=== PATIENT | male | born 1975 ===

== ENCOUNTER 2021-05-07 15:44 | Observation (INO) | payer OTHER, SELFPAY ==
[2021-05-07] VITALS (12 sets, daily range): BP systolic 103–115; BP diastolic 60–70; PULSE 54–82; RESP 12–18; TEMP 36.6–37.2; O2SAT 94–100; BMI 22.0
--- NOTE | 2021-05-07 | PATH_ITS ---
[facility] Accession Number: [id number] . 01 Material submitted: . appendix - APPENDIX . 01 Clinical history: . PAIN IN LOWER ABDOMEN ON RIGHT SIDE . 02 Diagnosis: Appendix, Appendectomy: Acute appendicitis and serositis. Fecalith present ([address] [facility] 05/10/2021 1427 Local . 02 Electronically signed: . Camila Kimball MD, Pathologist NPI- [id number] . 01 Gross description: . The specimen is received in formalin, labeled appendix and consists of a fragmented appendix measuring 7.0 cm in length by 0.8 cm in diameter approximately. The attached mesoappendix is asencio-yellow and hemorrhagic with purulent exudate. The serosa is pink-red and ragged with purulent exudate. Sectioning reveals a red-brown mucosa and a lumen measuring 0.6 cm in diameter. A 1.0 x 0.8 x 0.6 cm asencio stone is identified within the specimen container. Electronic Resources Librarian sections are submitted, to include the en face margin (blue), central cross-sections and bisected tips, in cassettes A1-A2. (EA:[id number]) /MRV 05/09/2021 1136 Local . 02 Pathologist provided ICD-10: K35.80 . 02 CPT . 696244 Performed at: 01 [facility] [address], [place], [place] [id number] MD Mitesh Truong MD Phone: [phone] Performed at: 02 [facility] [address] [place], [place] [id number] MD Carol Kamara MD Phone: [phone]
--- NOTE | 2021-05-07 16:04 | DI.CT.S_ITS ---
PROCEDURE: CT ABDOMEN PELVIS W CON INDICATIONS: RLQ pain/tenderness TECHNIQUE: After the administration of intravenous contrast, axial sections acquired from the lung bases to the pubic symphysis. Coronal and sagittal reformats were performed. For radiation dose reduction, the following was used: automated exposure control, adjustment of mA and/or kV according to patient size. COMPARISON: None. FINDINGS: Image quality: Excellent. Lung bases: Unremarkable. Heart: No significant findings. ABDOMEN: Liver: Unremarkable. Gallbladder: Demonstrates a phyrgian cap and is otherwise unremarkable Biliary ducts: Unremarkable. Pancreas: Unremarkable. Spleen: Unremarkable. Adrenal Glands: Unremarkable. Kidneys and Ureters: Unremarkable. Stomach and Bowel: There is mild thickening of the proximal ascending colon Stomach, small bowel loops, and colon are otherwise unremarkable. Appendix is distended and demonstrates internal gas and fluid as well as an appendicoliths measuring 12 mm. Severe surrounding fat stranding as well as a small amount of fluid within the right pericolic gutter and pelvis. Peritoneum: . No free air. Ventral Wall: No hernias. Abdominal Nodes: No retroperitoneal or mesenteric adenopathy by size criteria. Vessels: Aorta and inferior vena cava are normal in size. PELVIS: Pelvic Organs: Unremarkable. Bladder: Unremarkable. Pelvic Nodes: No enlarged lymph nodes. Miscellaneous: No hernias are seen. Bones: Unremarkable. IMPRESSION: 1. Ruptured appendicitis. Surrounding fluid and secondary thickening of the colon. 2. Findings discussed with Dr. Chris on 05/07/2021 at 16:38 hours. Dictated by: Pete Jackson M.D. on 05/07/2021 at 16:37 Approved by: Pete Jackson M.D. on 05/07/2021 at 16:39
[2021-05-07 16:09] LABS: Add Manual Diff / Slide Review NO; Basophils Absolute Auto 0 /uL (0-100); Basophils Percent Auto 0.4 % (0-2); Eosinophils Absolute Auto 0 /uL (0-450); Eosinophils Percent Auto 0.1 % (2-4); Hematocrit 44.2 % (41-53); Hemoglobin 15.2 g/dL (13.5-17.5); Lymphocytes Absolute Auto 1200 /uL (1100-4500); Lymphocytes Percent Auto 9.8 % (25-40); Mean Corpuscular HGB Conc 34.4 % (30-36); Mean Corpuscular Hemoglobin 32.3 PG (26-34); Mean Corpuscular Volume 93.8 fL (80-100); Monocytes Absolute Auto 1100 /uL (0-900); Monocytes Percent Auto 9.5 % (3-14); Neutrophils Absolute Auto 9600 /uL (1500-7000); Neutrophils Percent Auto 80.2 % (50-75); Platelet Count 228 X10^3/uL (150-400); Red Blood Cell Count 4.72 X10^6/uL (4.5-5.9); Red Cell Distribution Width 12.9 % (11.6-14.8)
[2021-05-07 16:14] LABS: Alanine Aminotransferase 14 IU/L (<50); Albumin 4.5 g/dL (3.5-5.0); Albumin Globulin Ratio 1.3 (1.0-2.8); Alkaline Phosphatase 62 U/L (38-126); Aspartate Aminotransferase 19 IU/L (17-59); BUN Creatinine Ratio 16.7 (6-22); Blood Urea Nitrogen 9 mg/dL (9-20); Calcium 9.3 mg/dL (8.4-10.2); Carbon Dioxide 31 mmol/L (22-32); Chloride 100 mmol/L (98-107); Estimated Glomerular Filt Rate > 60.0 mL/min (>60); Globulin 3.5 g/dL (1.7-4.1); Glucose 118 mg/dL (70-100); HEMOLYSIS < 15 (0-50); Lipase 21 U/L (23-300); Sodium 139 mmol/L (137-145)
[2021-05-07] MEDS: HYDROMORPHONE 0.5 MG INJ IV (16:32)
[2021-05-07] MEDS: ONDANSETRON 4 MG/2 ML INJ IV (16:32)
[2021-05-07] MEDS: SODIUM CHLORIDE 0.9% 1,000 ML 1000 ML IV (16:32)
--- NOTE | 2021-05-07 17:01 | ED.ABDPAIN ---
HPI - Abdominal Pain General Chief Complaint: Abdominal Pain Stated Complaint: pain in lower abdomen on right side Time Seen by Provider: 05/07/21 16:52 Source: patient Mode of arrival: Ambulatory Limitations: no limitations History of Present Illness HPI narrative: This a 46-year-old male who comes emergency department with complaint of right lower quadrant pain which has been present since Thursday and been increasingly painful. Patient has not had fevers. No nausea or vomiting. No diarrhea constipation. No urinary symptoms. Patient states he does not have any daily medication issues. No prior surgeries. He is allergic to penicillin and has been tested with skin testing and did react. His allergy was a child so he does not know the exact reaction. No tobacco, occasional alcohol, no illicit. Patient's last meal or fluid intake was at 9:00 a.m. this morning. Related Data Allergies Allergy/AdvReac Type Severity Reaction Status Date / Time Penicillins Allergy Unknown Verified 05/07/21 17:06 Review of Systems Review of Systems ROS Unobtainable: All systems reviewed & are unremarkable except as noted in HPI and below Exam Narrative Exam Narrative: GENERAL: Alert and oriented x three, well nourished thin male in moderate distress. HEENT: Head normocephalic, atraumatic, EOMI, pupils reactive, face symmetric, moist mucous membranes NECK: Supple, full range of motion CARDIOVASCULAR: Regular rate and rhythm without murmurs, rubs or gallops. RESPIRATORY: Breath sounds equal bilaterally, no wheezes rales or rhonchi. ABDOMEN: Soft, positive for right lower quadrant 10. Normoactive bowel sounds all 4 quadrants. Positive for guarding and rebound, no rigidity, no mass. : No CVA tenderness EXTREMITIES: Normal range of motion, no clubbing or edema. Neurovascularly intact NEUROLOGICAL: Cranial nerves II through XII grossly intact. Moving all extremities SKIN: Warm, dry, no petechiae, no rashes or lesions. Initial Vital Signs Initial Vital Signs: Vital Signs Temperature 98.9 F 05/07/21 15:47 Pulse Rate 74 05/07/21 15:47 Respiratory Rate 18 05/07/21 15:47 Blood Pressure 112/70 05/07/21 15:47 Pulse Oximetry 98 05/07/21 15:47 Course Orders Ordered: ED Orders 05/07/21 15:56 Complete Blood Count AUTO DIFF Stat Comprehensive Metabolic Panel Stat Lipase Stat 05/07/21 16:04 CT abdomen pelvis w con Stat 05/07/21 16:50 COVID19 - ADMIT (COLLAR PADDER BLINDSTITCH swab/PCR) Stat 05/07/21 17:21 COVID19 -Nasal swab/Pre-Proc Stat Lactated Ringer's (Lactated Ringers) 1,000 mls @ 42 mls/hr IV CONT CARLOS Discontinued Medications Acetaminophen (Acetaminophen 325 Mg Tablet) 975 mg PO NOW ONE Stop: 05/07/21 17:35 Last Admin: 05/07/21 17:58 Dose: 975 mg Documented by: ENRIQUE Gabapentin (Gabapentin 300 Mg Capsule) 300 mg PO NOW ONE Stop: 05/07/21 17:35 Last Admin: 05/07/21 17:58 Dose: 300 mg Documented by: ENRIQUE Hydromorphone HCl (Hydromorphone 0.5 Mg Inj) 0.5 mg IV NOW ONE Stop: 05/07/21 16:23 Last Admin: 05/07/21 16:32 Dose: 0.5 mg Documented by: AMANDA Sodium Chloride (Normal Saline 0.9%) 1,000 mls @ 1,000 mls/hr IV BOLUS ONE Stop: 05/07/21 17:22 Last Infusion: 05/07/21 17:12 Dose: 0 mls/hr Documented by: Admin: 05/07/21 16:32 Dose: 1,000 mls/hr Documented by: AMANDA Levofloxacin (Levaquin) 750 mg in 150 mls @ 100 mls/hr IV NOW ONE Stop: 05/07/21 18:27 Last Infusion: 05/07/21 18:18 Dose: 100 mls/hr Documented by: Admin: 05/07/21 17:12 Dose: 100 mls/hr Documented by: ENRIQUE Metronidazole (Flagyl) 500 mg in 100 mls @ 100 mls/hr IV NOW ONE Stop: 05/07/21 17:57 Ondansetron HCl (Ondansetron 4 Mg/2 Ml Inj) 4 mg IV NOW ONE Stop: 05/07/21 16:23 Last Admin: 05/07/21 16:32 Dose: 4 mg Documented by: AMANDA Consultations Consultation #1: Dr. Ortega, accepts for admission. Plan for OR this evening. Not sure of exact time. Vital Signs Vital signs: Vital Signs - 8 hr 05/07/21 15:47 05/07/21 17:25 Temperature 98.9 F Pulse Rate 74 54 L Respiratory Rate 18 16 Blood Pressure 112/70 115/63 Pulse Oximetry 98 97 MDM - Abdominal Pain Lab Data Result diagrams: 05/07/21 15:56 05/07/21 15:56 Labs: Lab Results 05/07/21 05/07/21 05/07/21 Range/Units 15:56 15:56 16:50 WBC 12.0 H (4.5-11.0) X10^3/uL RBC 4.72 (4.5-5.9) X10^6/uL Hgb 15.2 (13.5-17.5) g/dL Hct 44.2 (41-53) % MCV 93.8 (80-100) fL MCH 32.3 (26-34) PG MCHC 34.4 (30-36) % RDW 12.9 (11.6-14.8) % Plt Count 228 (150-400) X10^3/uL Neut % (Auto) 80.2 H (50-75) % Lymph % (Auto) 9.8 L (25-40) % Dawes % (Auto) 9.5 (3-14) % Eos % (Auto) 0.1 L (2-4) % Baso % (Auto) 0.4 (0-2) % Neut # (Auto) 9600 H (8026-0538) /uL Lymph # (Auto) 1200 (7594-1807) /uL Dawes # (Auto) 1100 H (0-900) /uL Eos # (Auto) 0 (0-450) /uL Baso # (Auto) 0 (0-100) /uL Sodium 139 (137-145) mmol/L Potassium 4.0 (3.4-5.1) mmol/L Chloride 100 (98-107) mmol/L Carbon Dioxide 31 (22-32) mmol/L BUN 9 (9-20) mg/dL Creatinine 0.54 L (0.66-1.25) mg/dL Estimated GFR > 60.0 (>60) mL/min BUN/Creatinine Ratio 16.7 (6-22) Glucose 118 H (70-100) mg/dL Calcium 9.3 (8.4-10.2) mg/dL Total Bilirubin 1.0 (0.2-1.3) mg/dL AST 19 (17-59) IU/L ALT 14 (<50) IU/L Alkaline Phosphatase 62 (38-126) U/L Total Protein 8.0 (6.3-8.2) g/dL Albumin 4.5 (3.5-5.0) g/dL Globulin 3.5 (1.7-4.1) g/dL Albumin/Globulin Ratio 1.3 (1.0-2.8) Lipase 21 L (23-300) U/L SARS-CoV-2 (PCR) Negative (Negative) 05/07/21 Range/Units 17:21 WBC (4.5-11.0) X10^3/uL RBC (4.5-5.9) X10^6/uL Hgb (13.5-17.5) g/dL Hct (41-53) % MCV (80-100) fL MCH (26-34) PG MCHC (30-36) % RDW (11.6-14.8) % Plt Count (150-400) X10^3/uL Neut % (Auto) (50-75) % Lymph % (Auto) (25-40) % Dawes % (Auto) (3-14) % Eos % (Auto) (2-4) % Baso % (Auto) (0-2) % Neut # (Auto) (3750-5298) /uL Lymph # (Auto) (4560-1276) /uL Dawes # (Auto) (0-900) /uL Eos # (Auto) (0-450) /uL Baso # (Auto) (0-100) /uL Sodium (137-145) mmol/L Potassium (3.4-5.1) mmol/L Chloride (98-107) mmol/L Carbon Dioxide (22-32) mmol/L BUN (9-20) mg/dL Creatinine (0.66-1.25) mg/dL Estimated GFR (>60) mL/min BUN/Creatinine Ratio (6-22) Glucose (70-100) mg/dL Calcium (8.4-10.2) mg/dL Total Bilirubin (0.2-1.3) mg/dL AST (17-59) IU/L ALT (<50) IU/L Alkaline Phosphatase (38-126) U/L Total Protein (6.3-8.2) g/dL Albumin (3.5-5.0) g/dL Globulin (1.7-4.1) g/dL Albumin/Globulin Ratio (1.0-2.8) Lipase (23-300) U/L SARS-CoV-2 (PCR) Negative (Negative) Imaging Data CT scan - abdomen/pelvis: Radiologist's Impression: [address] [id number] Scan ReportSigned Patient: Charles Gillis MMR#: [id number]: [id number]:[id number]/Sex: 46 / MDate of Service: 05/07/21Loc: EDAccession Number: [id number] Procedure: CT abdomen pelvis w con Ordering Provider: Gabrielle Chris D.O. PROCEDURE: CT ABDOMEN PELVIS W CON INDICATIONS: RLQ pain/tenderness TECHNIQUE: After the administration of intravenous contrast, axial sections acquired from the lung bases to the pubic symphysis. Coronal and sagittal reformats were performed. For radiation dose reduction, the following was used: automated exposure control, adjustment of mA and/or kV according to patient size. COMPARISON: None. FINDINGS: Image quality: Excellent. Lung bases: Unremarkable. Heart: No significant findings. ABDOMEN: Liver: Unremarkable. Gallbladder: Demonstrates a phyrgian cap and is otherwise unremarkable Biliary ducts: Unremarkable. Pancreas: Unremarkable. Spleen: Unremarkable. Adrenal Glands: Unremarkable. Kidneys and Ureters: Unremarkable. Stomach and Bowel: There is mild thickening of the proximal ascending colon Stomach, small bowel loops, and colon are otherwise unremarkable. Appendix is distended and demonstrates internal gas and fluid as well as an appendicoliths measuring 12 mm. Severe surrounding fat stranding as well as a small amount of fluid within the right pericolic gutter and pelvis. Peritoneum: . No free air. Ventral Wall: No hernias. Abdominal Nodes: No retroperitoneal or mesenteric adenopathy by size criteria. Vessels: Aorta and inferior vena cava are normal in size. PELVIS: Pelvic Organs: Unremarkable. Bladder: Unremarkable. Pelvic Nodes: No enlarged lymph nodes. Miscellaneous: No hernias are seen. Bones: Unremarkable. IMPRESSION: 1. Ruptured appendicitis. Surrounding fluid and secondary thickening of the colon. 2. Findings discussed with Dr. Chris on 05/07/2021 at 16:38 hours. Dictated by: Pete Jackson M.D. on 05/07/2021 at 16:37 Approved by: Pete Jackson M.D. on 05/07/2021 at 16:39 Discharge Plan Departure Patient Disposition: Admitted as Observation Clinical Impression: Acute appendicitis with rupture Admit Date/Time: 05/07/21 17:26 Admit Provider: Pranav Ortega
[2021-05-07] MEDS: levoFLOXacin 750 MG/150 ML PIGGYBACK 100 MG IV (17:12)
[2021-05-07 17:43] LABS: COVID19 -Nasal RAPID Negative (Negative)
[2021-05-07] MEDS: GABAPENTIN 300 MG CAPSULE PO (17:58)
[2021-05-07] MEDS: ACETAMINOPHEN 325 MG TABLET 975 MG PO (17:58)
[2021-05-07 18:12] LABS: COVID19 - ADMIT (NP swab/PCR) Negative (Negative)
--- NOTE | 2021-05-07 18:41 | P.HP_ITS ---
History of Present Illness History of Present Illness Date Patient Seen: 05/07/21 Time Patient Seen: 18:51 Chief complaint: pain in lower abdomen on right side Narrative: 46-year-old healthy male with acute appendicitis. Developed vague generalized abdominal pain 2 days ago. Became focused to the right lower quadrant today with associated nausea. No emesis or fever. At admission WBC 12, CT abdomen pelvis demonstrates acute appendicitis with fecalith, free fluid no abscess. Received pain medication, Levaquin and Flagyl in the emergency room. No prior abdominal surgery. One episode of seizure several years ago no workup. Patient History Medical History Seizure Meds Home Medications and Allergies Home Medications Medication Instructions Recorded Confirmed Type No Known Home Medications 05/07/21 05/07/21 History Allergies Allergy/AdvReac Type Severity Reaction Status Date / Time Penicillins Allergy Unknown Verified 05/07/21 18:43 Review of Systems Review of Systems ROS: Yes All systems reviewed with the patient and are negative except as otherwise documented Exam Vital Signs (past 8 hours): - 05/07/21 15:47 05/07/21 17:25 05/07/21 17:31 Temperature 98.9 F Pulse Rate 74 54 L 60 Respiratory Rate 18 16 Blood Pressure 112/70 115/63 Pulse Oximetry 98 97 100 05/07/21 18:00 Temperature Pulse Rate 72 Respiratory Rate Blood Pressure 114/66 Pulse Oximetry 99 Oxygen Delivery Method Room Air Narrative Exam Narrative: GENERAL-well developed adult male, no acute distress HEENT-no scleral icterus, hearing intact NECK-no JVD, trachea midline CVS- regular rate, no peripheral edema RESP-unlabored respiratory effort, no audible wheezing GI-focal peritonitis right lower quadrant MSK-no cyanosis or clubbing, extremities without deformity SKIN-warm, dry NEURO-alert and oriented, no focal deficits PYSCH-Appropriate mood and affect Objective Labs Result Diagrams: 05/07/21 15:56 05/07/21 15:56 Labs: Laboratory Results - last 24 hr 05/07/21 05/07/21 05/07/21 15:56 15:56 16:50 WBC 12.0 H RBC 4.72 Hgb 15.2 Hct 44.2 MCV 93.8 MCH 32.3 MCHC 34.4 RDW 12.9 Plt Count 228 Neut % (Auto) 80.2 H Lymph % (Auto) 9.8 L [place] % (Auto) 9.5 Eos % (Auto) 0.1 L Baso % (Auto) 0.4 Neut # (Auto) 9600 H Lymph # (Auto) 1200 [place] # (Auto) 1100 H Eos # (Auto) 0 Baso # (Auto) 0 Sodium 139 Potassium 4.0 Chloride 100 Carbon Dioxide 31 BUN 9 Creatinine 0.54 L Estimated GFR > 60.0 BUN/Creatinine Ratio 16.7 Glucose 118 H Calcium 9.3 Total Bilirubin 1.0 AST 19 ALT 14 Alkaline Phosphatase 62 Total Protein 8.0 Albumin 4.5 Globulin 3.5 Albumin/Globulin Ratio 1.3 Lipase 21 L SARS-CoV-2 (PCR) Negative 05/07/21 17:21 WBC RBC Hgb Hct MCV MCH MCHC RDW Plt Count Neut % (Auto) Lymph % (Auto) [place] % (Auto) Eos % (Auto) Baso % (Auto) Neut # (Auto) Lymph # (Auto) [place] # (Auto) Eos # (Auto) Baso # (Auto) Sodium Potassium Chloride Carbon Dioxide BUN Creatinine Estimated GFR BUN/Creatinine Ratio Glucose Calcium Total Bilirubin AST ALT Alkaline Phosphatase Total Protein Albumin Globulin Albumin/Globulin Ratio Lipase SARS-CoV-2 (PCR) Negative Assessment & Plan Assessment and plan (1) Acute appendicitis with rupture: Status: Acute Assessment & Plan narrative: 46-year-old man healthy with acute appendicitis. F ocal peritonitis mild leukocytosis, CT demonstrates acute appendicitis with fecalith, free fluid no abscess. -laparoscopic appendectomy Explained to the patient that he has acute appendicitis likely with rupture. We discussed management options including operative and non operative management. I recommended that we proceed with laparoscopic appendectomy given the presence of fecalith and his high probability of recurrence without operative intervention. Technical details of the operation were discussed with the patient. Operative risks including bleeding, infection, damage to surrounding structures, conversion to open were discussed. His questions have been answered he is in agreement with this plan.
[2021-05-07] MEDS: metroNIDAZOLE 500 MG/100 ML PIGGYBACK 100 MG IV (19:01)
[2021-05-07] MEDS: LACTATED RINGERS 1,000 ML 42 ML IV (19:03)
--- NOTE | 2021-05-07 21:14 | SUR.OPER ---
Supine on padded OR bed, head on pillow, Left arm padded and tucked at side, right arm on padded arm board <90 degrees abduction, legs uncrossed, safety belt at thigh, tape over blanket over lower legs .
[2021-05-07] MEDS: BUPIVACAINE 0.25% (PF) VIAL 30 ML INJ (21:29)
--- NOTE | 2021-05-07 22:57 | PM.OP.1 ---
Operative Date/Time/Diagnoses Date of procedure: 05/07/21 Time of procedure: 22:58 Pre-op diagnosis: perforated appendicitis Post-op diagnosis: same Procedure & Clinicians Procedure: Laparoscopic converted to open appendectomy Same procedure as scheduled: Yes Indications: 46-year-old male presents with several days of abdominal pain CT demonstrates acute appendicitis with free fluid extensive fat stranding without abscess Surgeon: Pranav Sue Yes if Unassisted: Yes Anesthesia Type: General Operative Notes Findings: Necrotic appendix perforated nearly at the base. Large fecalith. Phlegmon no edil abscess Specimen(s): other (Appendix) Estimated Blood Loss (mL): 100 Procedure in detail: Patient brought to the operating room placed supine on table. Bilateral lower extremity compression devices were applied. The general anesthesia was induced he was intubated with an endotracheal tube. He received Levaquin and Flagyl prior to skin incision. Infraumbilical incision was made umbilical stalk grasped elevated fashion sharply incised abdomen was entered atraumatically. Upon entry to the abdomen there was purulent fluid in the pelvis. Two additional trocars were placed 1 in the left lower quadrant and the 2nd suprapubic. The right colon was identified and the tenia were followed to the base where the appendix was observed. The appendix was within a phlegmon and was necrotic in its entirety. The appendix appeared to be perforated near its base and there was a large fecalith within the base that fell out spontaneously. The cecum was extremely inflamed and quite immobile. I was unable to safely mobilize the cecum laparoscopically nor could I safely close the perforated remaining appendix. A lower midline incision was made wound protector was placed. The right colon was then mobilized along the white line of Toldt toward the midline and with this the appendix and the cecum were adequately exposed. The appendix was necrotic almost all the way down to the base there was a viable cuff of appendix remaining once it was fully exposed. The mesoappendix was divided between silk ties. The appendix was amputated flush with the cecum the base of the appendix was ligated twice using PDS suture. The abdomen was copiously lavaged with sterile saline. Hemostasis was achieved. 19F Santiago drain was placed into the pelvis and along the right colic gutter. The fascia was then closed in a running fashion using 1. PDS suture the subcutaneous tissue was closed with Vicryl skin closed with sabina. The drain was brought out through the left lower quadrant laparoscopic port Complications: none Post-operative Condition: stable Disposition: Acute Care
[2021-05-08] VITALS (12 sets, daily range): BP systolic 84–116; BP diastolic 52–70; PULSE 57–76; RESP 12–18; TEMP 36.4–37.4; O2SAT 94–98
[2021-05-08] MEDS: ACETAMINOPHEN 325 MG TABLET 650 MG PO ×4 (00:33→18:45)
[2021-05-08] MEDS: metroNIDAZOLE 500 MG/100 ML PIGGYBACK 100 MG IV ×3 (03:16→18:46)
[2021-05-08 05:22] LABS: BUN Creatinine Ratio 19.7 (6-22); Blood Urea Nitrogen 12 mg/dL (9-20); Calcium 8.6 mg/dL (8.4-10.2); Carbon Dioxide 30 mmol/L (22-32); Chloride 101 mmol/L (98-107); Estimated Glomerular Filt Rate > 60.0 mL/min (>60); Glucose 150 mg/dL (70-100); HEMOLYSIS < 15 (0-50); Potassium 4.6 mmol/L (3.4-5.1); Sodium 139 mmol/L (137-145)
[2021-05-08 05:24] LABS: Add Manual Diff / Slide Review NO; Basophils Absolute Auto 0 /uL (0-100); Basophils Percent Auto 0.1 % (0-2); Eosinophils Absolute Auto 0 /uL (0-450); Hematocrit 40.9 % (41-53); Hemoglobin 13.9 g/dL (13.5-17.5); Lymphocytes Absolute Auto 400 /uL (1100-4500); Lymphocytes Percent Auto 4.9 % (25-40); Mean Corpuscular HGB Conc 34.1 % (30-36); Mean Corpuscular Hemoglobin 32.2 PG (26-34); Mean Corpuscular Volume 94.5 fL (80-100); Monocytes Absolute Auto 800 /uL (0-900); Monocytes Percent Auto 9.1 % (3-14); Neutrophils Absolute Auto 7300 /uL (1500-7000); Neutrophils Percent Auto 85.9 % (50-75); Platelet Count 200 X10^3/uL (150-400); Red Blood Cell Count 4.33 X10^6/uL (4.5-5.9); White Blood Cell Count 8.5 X10^3/uL (4.5-11.0)
[2021-05-08] MEDS: KETOROLAC 30 MG/ML VIAL IV ×2 (05:42→16:22)
--- NOTE | 2021-05-08 08:02 | P.PN_ITS ---
Subjective Subjective Date Patient Seen: 05/08/21 Time Patient Seen: 08:02 Interval history: Improved abdominal pain. No nausea. Tolerated diet. Exam Vital Signs (past 8 hours): - 05/08/21 00:30 05/08/21 01:00 05/08/21 02:00 Temperature Pulse Rate 69 66 75 Respiratory Rate 18 18 14 Blood Pressure 107/55 L 103/54 L 84/60 L Pulse Oximetry 96 96 96 05/08/21 03:34 Temperature 98.5 F Pulse Rate 76 Respiratory Rate 14 Blood Pressure 94/70 Pulse Oximetry 97 Oxygen Delivery Method Room Air Oxygen Flow Rate 0 Narrative Exam Narrative: General adult male alert oriented no acute distress Abdomen soft appropriately tender to palpation. Drain left lower quadrant serosanguineous. Dressings midline no strike through Objective Labs Result Diagrams: 05/08/21 04:55 05/08/21 04:55 Labs: Laboratory Results - last 24 hr 05/07/21 05/07/21 05/07/21 15:56 15:56 16:50 WBC 12.0 H RBC 4.72 Hgb 15.2 Hct 44.2 MCV 93.8 MCH 32.3 MCHC 34.4 RDW 12.9 Plt Count 228 Neut % (Auto) 80.2 H Lymph % (Auto) 9.8 L Chester % (Auto) 9.5 Eos % (Auto) 0.1 L Baso % (Auto) 0.4 Neut # (Auto) 9600 H Lymph # (Auto) 1200 [place] # (Auto) 1100 H Eos # (Auto) 0 Baso # (Auto) 0 Sodium 139 Potassium 4.0 Chloride 100 Carbon Dioxide 31 BUN 9 Creatinine 0.54 L Estimated GFR > 60.0 BUN/Creatinine Ratio 16.7 Glucose 118 H Calcium 9.3 Total Bilirubin 1.0 AST 19 ALT 14 Alkaline Phosphatase 62 Total Protein 8.0 Albumin 4.5 Globulin 3.5 Albumin/Globulin Ratio 1.3 Lipase 21 L SARS-CoV-2 (PCR) Negative 05/07/21 05/08/21 05/08/21 17:21 04:55 04:55 WBC 8.5 RBC 4.33 L Hgb 13.9 Hct 40.9 L MCV 94.5 MCH 32.2 MCHC 34.1 RDW 13.0 Plt Count 200 Neut % (Auto) 85.9 H Lymph % (Auto) 4.9 L Chester % (Auto) 9.1 Eos % (Auto) 0.0 L Baso % (Auto) 0.1 Neut # (Auto) 7300 H Lymph # (Auto) 400 L [place] # (Auto) 800 Eos # (Auto) 0 Baso # (Auto) 0 Sodium 139 Potassium 4.6 Chloride 101 Carbon Dioxide 30 BUN 12 Creatinine 0.61 L Estimated GFR > 60.0 BUN/Creatinine Ratio 19.7 Glucose 150 H Calcium 8.6 Total Bilirubin AST ALT Alkaline Phosphatase Total Protein Albumin Globulin Albumin/Globulin Ratio Lipase SARS-CoV-2 (PCR) Negative [facility] Medical History Seizure Social History household members: spouse Smoking Status: Former smoker alcohol intake: current Assessment & Plan Post-op Postoperative Procedures: Procedures Operation Date: 05/07/21 18:00 Actual Procedure Side Surgeon p Laparoscopic Appendectomy; converted to open Left Pranav Ortega MD Postoperative status narrative: 46-year-old man postoperative day 1 status post laparoscopic converted to open appendectomy for necrotic perforated append icitis. -regular diet -continue IV Levaquin and Flagyl. -discharge home tomorrow -remove drain prior to discharge -SCDs for VT prophylaxis Quality VTE Deep Vein Thrombosis/Pulmonary Embolism Present on Admission: No
[2021-05-08] MEDS: DOCUSATE 100 MG CAPSULE PO ×2 (08:55→20:31)
--- NOTE | 2021-05-08 09:32 | CM.DANOTE ---
DCP: Case received, EMR reviewed and met with patient. , Dickson, was also at bedside. Introduced self and role. Was able to obtain information regarding patient's baseline activity status prior to hospitalization. DCP assessment completed with information currently available. Patient is a 46 year old male who admitted yesterday afternoon to the care of the hospitalist/surgical team. PCP: None in this area, gave him resources. Payer: confirmed: [place], out of state. Patient came to the hospital via private vehicle secondary to abdominal pain. Patient was diagnosed with acute appendicitis. He had his surgery yesterday. Met with patient in his room. His spouse was also at bedside. Patient is independent, recently moved here from [place], and does not have a local provider as of yet. His provider is in [place]. Went ahead and printed him out a resource for [employer]. He is [place] out of [facility], and will need to roll changer to [facility]. P: DCP to continue to follow. Patient most likely will DC home tomorrow, if stable. Shelli Cervantes RN/Yield Improvement Engineer
[2021-05-08] MEDS: levoFLOXacin 500 MG/100 ML PIGGYBACK 100 MG IV (16:25)
[2021-05-09] MEDS: ACETAMINOPHEN 325 MG TABLET 650 MG PO ×2 (01:55→08:14)
[2021-05-09] MEDS: metroNIDAZOLE 500 MG/100 ML PIGGYBACK 100 MG IV (02:56)
[2021-05-09 03:00] VITALS: BP 112/69; PULSE 67; RESP 18; TEMP 36.4; O2SAT 97
[2021-05-09 04:00] VITALS: O2SAT 97
[2021-05-09 05:20] LABS: Add Manual Diff / Slide Review NO; Basophils Absolute Auto 0 /uL (0-100); Basophils Percent Auto 0.3 % (0-2); Eosinophils Absolute Auto 0 /uL (0-450); Eosinophils Percent Auto 0.2 % (2-4); Hematocrit 37.7 % (41-53); Hemoglobin 12.7 g/dL (13.5-17.5); Lymphocytes Absolute Auto 1100 /uL (1100-4500); Lymphocytes Percent Auto 14.9 % (25-40); Mean Corpuscular HGB Conc 33.6 % (30-36); Mean Corpuscular Hemoglobin 31.6 PG (26-34); Mean Corpuscular Volume 93.9 fL (80-100); Monocytes Absolute Auto 700 /uL (0-900); Monocytes Percent Auto 9.8 % (3-14); Neutrophils Absolute Auto 5700 /uL (1500-7000); Neutrophils Percent Auto 74.8 % (50-75); Platelet Count 218 X10^3/uL (150-400); Red Blood Cell Count 4.01 X10^6/uL (4.5-5.9); White Blood Cell Count 7.6 X10^3/uL (4.5-11.0)
[2021-05-09 05:28] LABS: BUN Creatinine Ratio 24.6 (6-22); Blood Urea Nitrogen 15 mg/dL (9-20); Calcium 8.3 mg/dL (8.4-10.2); Carbon Dioxide 31 mmol/L (22-32); Chloride 102 mmol/L (98-107); Estimated Glomerular Filt Rate > 60.0 mL/min (>60); Glucose 118 mg/dL (70-100); HEMOLYSIS < 15 (0-50); Potassium 4.1 mmol/L (3.4-5.1); Sodium 137 mmol/L (137-145)
[2021-05-09 07:55] VITALS: BP 112/67; PULSE 54; RESP 16; TEMP 36.8; O2SAT 95
[2021-05-09 08:00] VITALS: O2SAT 95
[2021-05-09] MEDS: DOCUSATE 100 MG CAPSULE PO (08:17)
[2021-05-09 08:30] VITALS: O2SAT 95
--- NOTE | 2021-05-09 10:31 | PC.NURSE ---
Pt recieved A&Ox3, reports minimal pain and bloating. BS+x4. LS CTA. VSS, afebrile on RA. Pt reports he is passing large amounts of gas. MD at bedside d/c's lyssa drain, and clearing patient for discharge. Armstrong midline, C/D/I w/o drainage. Assisted patient to take shower, IV removed. Significant other at bedside supportive. Both patient and s.o. verbalize understanding of medications, discharge activity, worsening of symptoms, wound care, and follow up appointments. Escorted to lobby via wheel chair to wait for ride from family member to go to bean picker meds at [place], catch [facility].
--- NOTE | 2021-05-09 13:21 | PM.DS.1 ---
History of Present Illness History of Present Illness Date Patient Seen: 05/09/21 Time Patient Seen: 13:22 Chief complaint: pain in lower abdomen on right side Narrative: 46-year-old healthy male with acute appendicitis. Developed vague generalized abdominal pain 2 days ago. Became focused to the right lower quadrant today with associated nausea. No emesis or fever. At admission WBC 12, CT abdomen pelvis demonstrates acute appendicitis with fecalith, free fluid no abscess. Received pain medication, Levaquin and Flagyl in the emergency room. No prior abdominal surgery. One episode of seizure several years ago no workup. Discharge Providers Provider Date of admission: 05/07/21 17:26 Discharge Date: 05/09/21 Discharge provider: Pranav Newsome MD Summary Hospital Course Discharge Diagnosis: Perforated appendicitis Hospital Course: Patient went to the operating room for acute appendicitis he underwent a laparoscopic converted to open appendectomy which demonstrated a necrotic perforated appendix. She remained hospitalized following the procedure for antibiotic therapy. On the day discharge he is afebrile with minimal abdominal pain and leukocytosis resolved. Exam Vital Signs (past 8 hours): - 05/09/21 07:55 05/09/21 08:00 05/09/21 08:30 Temperature 98.2 F Pulse Rate 54 L Respiratory Rate 16 Blood Pressure 112/67 Pulse Oximetry 95 95 95 Oxygen Delivery Method Room Air Oxygen Flow Rate 0 Narrative Exam Narrative: General adult male alert oriented no acute distress Chest nonlabored respirations Abdomen soft appropriately tender to palpation. Incision clean dry intact with sabina. RODNEY drain serosanguineous removed. Objective Labs Result Diagrams: 05/09/21 05:05 05/09/21 05:05 Labs: Laboratory Results - last 24 hr 05/09/21 05/09/21 05:05 05:05 WBC 7.6 RBC 4.01 L Hgb 12.7 L Hct 37.7 L MCV 93.9 MCH 31.6 MCHC 33.6 RDW 13.0 Plt Count 218 Neut % (Auto) 74.8 Lymph % (Auto) 14.9 L Ashley % (Auto) 9.8 Eos % (Auto) 0.2 L Baso % (Auto) 0.3 Neut # (Auto) 5700 Lymph # (Auto) 1100 Ashley # (Auto) 700 Eos # (Auto) 0 Baso # (Auto) 0 Sodium 137 Potassium 4.1 Chloride 102 Carbon Dioxide 31 BUN 15 Creatinine 0.61 L Estimated GFR > 60.0 BUN/Creatinine Ratio 24.6 H Glucose 118 H Calcium 8.3 L PFSH Medical History Seizure Social History household members: spouse Smoking Status: Former smoker alcohol intake: current Discharge Plan Discharge Plan Patient Disposition: Home Provider Discharge Comment: -Okay to shower -Do not submerge wounds in water until seen in follow-up. -No lifting >20 lbs x 4 weeks. -Walking only for exercise for 4 weeks. -No driving while taking narcotics. Discharge orders & Medications Prescriptions: New ibuprofen 200 mg tablet 400 mg PO Q6H Qty: 60 RF: 0 oxycodone 5 mg tablet See Rx Instructions .ROUTE .COMPLEX PRN (Reason: pain) Qty: 30 RF: 0 acetaminophen [Tylenol] 325 mg capsule 650 mg PO QID PRN (Reason: pain) Qty: 60 RF: 0 levofloxacin 750 mg tablet 750 mg PO DAILY Qty: 7 RF: 0 metronidazole [Flagyl] 500 mg tablet 500 mg PO TID Qty: 21 RF: 0 Medication counseling provided by Pharmacist: Yes Follow up/Referrals: Pranav Newsome MD [Physician] - 05/22/21 10:00 am (appt:05/22 @ 10:[address] newsome please arive 15 minutes prior to scheduled appointment time) Diet/Activity/Treatments Diet: Diet as Tolerated Skin/Wound/Dressing Care Report to your healthcare provider any signs of infection, such as:: chills, fever, increased pain, unusual drainage and unusual redness Quality VTE Deep Vein Thrombosis/Pulmonary Embolism Present on Admission: No
== END 2021-05-09 10:36 | disposition home or self-care (01) ==
LOC: ED 17:16 → AC 17:27
PROVIDERS: Admitting Provider Surgery; Emergency Provider Emergency Medicine; Referring Provider Emergency Medicine; Visit Provider Surgery
PROC: 0DTJ4ZZ Resection of Appendix, Percutaneous Endoscopic Approach (ICD-10-PCS; CPT 44970; principal; 2021-05-07 18:00)
DX: K35.32 Acute appendicitis with perforation, localized peritonitis, and gangrene, without abscess (principal); K38.1 Appendicular concretions; Z20.822 Contact with and (suspected) exposure to COVID-19; Z87.891 Personal history of nicotine dependence
CPT/HCPCS: 44960; 36415; 74177; 80048; 80053; 83690; 85025; 87635; 94760; 96361; 96365; 96366; 96367; 96375; 96376; 99219; 99284; C9803; G0378; J0330; J1100; J1170; J1885; J1956; J2250; J2405; J2704; J3010; Q9967

== ENCOUNTER 2021-05-19 19:48 | Emergency (ER) | payer OTHER, SELFPAY ==
[2021-05-09 09:06] VITALS: BMI 22.0
[2021-05-19 19:53] VITALS: BP 128/75; PULSE 55; RESP 14; TEMP 36.8; O2SAT 99; BMI 25.0
--- NOTE | 2021-05-19 20:07 | ED_ITS ---
HPI - Recheck/Abnormal Lab/Rx General Chief Complaint: Recheck/Abnormal Lab/Rx Stated Complaint: SURGERY 05/07/21 STOMACH HURTING PUKED Time Seen by Provider: 05/19/21 20:00 Source: patient Mode of arrival: Ambulatory Limitations: no limitations History of Present Illness HPI narrative: Patient is a 46-year-old male had a recent history of perforated appendicitis who underwent an open appendectomy on May 07. He presents today with nausea and vomiting. He states that 2 days ago he and his partner probably ate some bad food. He has been unable to keep anything down. He has got burning in his epigastric reason. He states that he has also had some issues with constipation as well. He manually disimpacted himself 2 days ago. He said he is no longer taking any medications he was on antibiotics he is com plaining of epigastric pain well. No fevers or chills. Related Data Previous Rx's Medication Instructions Recorded acetaminophen 325 mg capsule 650 mg PO QID PRN #60 cap 05/09/21 (Tylenol) ibuprofen 200 mg tablet 400 mg PO Q6H #60 tab 05/09/21 levofloxacin 750 mg tablet 750 mg PO DAILY #7 tab 05/09/21 metronidazole 500 mg tablet 500 mg PO TID #21 tab 05/09/21 (Flagyl) oxycodone 5 mg tablet See Rx Instructions .ROUTE 05/09/21 .COMPLEX PRN #30 tab ondansetron 4 mg disintegrating 4 mg PO Q8H PRN #10 tab 05/19/21 tablet Allergies Allergy/AdvReac Type Severity Reaction Status Date / Time Penicillins Allergy Unknown Verified 05/19/21 19:57 Review of Systems Review of Systems Narrative: GENERAL: Denies chills, fatigue, malaise, fever, sweats, travel HEENT: Denies sinus pain, ear pain, sore throat, difficulty swallowing, neck pain RESPIRATORY: Denies dyspnea, cough, wheezing, hemoptysis, sputum. CARDIOVASCULAR: Denies chest pain, palpitations, orthopnea, edema GASTROINTESTINAL: See HPI : Denies dysuria, frequency, incontinence, hematuria, urinary retention, flank pain. MUSCULOSKELETAL: Denies weakness, joint pain, or bony pain SKIN: No rash, no erythema, no pruritus NEUROLOGIC: Denies weakness, dizziness, headache, numbness, change in speech, confusion PSYCHIATRIC: No concerning psychosocial issues. 12 point review of systems is negative except for those stated above and HPI Patient History Medical History Seizure Social History household members: spouse Smoking Status: Former smoker alcohol intake: current Smoking Status: Former smoker alcohol intake frequency: holidays/special occasions only Substance Use Type: marijuana Exam Initial Vital Signs Initial Vital Signs: Vital Signs Temperature 98.2 F 05/19/21 19:53 Pulse Rate 55 L 05/19/21 19:53 Respiratory Rate 14 05/19/21 19:53 Blood Pressure 128/75 05/19/21 19:53 Pulse Oximetry 99 05/19/21 19:53 GENERAL: Well-appearing, well-nourished and in no acute distress. HEENT: Head atraumatic,EOMI, pupils reactive, face symmetric, moist mucous membranes CARDIOVASCULAR: Regular rate and rhythm without murmurs, rubs or gallops. RESPIRATORY: Breath sounds equal bilaterally, no wheezes rales or rhonchi. ABDOMEN: Soft, incision site clean and dry positive bowel sounds no sign of infection tender in epigastric region negative Servin sign EXTREMITIES: Normal range of motion, no clubbing or edema. Neurovascularly intact NEUROLOGICAL: Alert and oriented x4.Normal gait and speech. SKIN: Incision site clean Course Orders Ordered: ED Orders 05/19/21 20:13 XR acute abdomen series Stat 05/19/21 20:35 Complete Blood Count AUTO DIFF Stat Comprehensive Metabolic Panel Stat Lactate (Lactic Acid) Stat Procalcitonin Stat 05/19/21 21:29 CT abdomen pelvis w con Stat Discontinued Medications Sodium Chloride (Normal Saline 0.9%) 1,000 mls @ 1,000 mls/hr IV BOLUS ONE Stop: 05/19/21 21:12 Last Infusion: 05/19/21 23:36 Dose: 0 mls/hr Documented by: Admin: 05/19/21 20:30 Dose: 1,000 mls/hr Documented by: SUSANNA Morphine Sulfate (Morphine 4 Mg/Ml Inj) 4 mg IV NOW ONE Stop: 05/19/21 22:51 Last Admin: 05/19/21 23:36 Dose: 4 mg Documented by: SUSANNA Ondansetron HCl (Ondansetron 4 Mg/2 Ml Inj) 4 mg IV NOW ONE Stop: 05/19/21 20:14 Last Admin: 05/19/21 20:30 Dose: 4 mg Documented by: SUSANNA Ondansetron HCl (Ondansetron 4 Mg Odt Prepack) 1 bottle MISC SEEINSTR ONE Stop: 05/19/21 23:56 Last Admin: 05/20/21 00:07 Dose: 1 bottle Documented by: GIL Pantoprazole Sodium (Pantoprazole 40 Mg Vial) 40 mg IV NOW ONE Stop: 05/19/21 20:14 Last Admin: 05/19/21 20:30 Dose: 40 mg Documented by: SUSANNA Vital Signs Vital signs: Vital Signs - 8 hr 05/20/21 00:11 Temperature 99.3 F Pulse Rate 73 Respiratory Rate 18 Blood Pressure 135/84 Pulse Oximetry 96 MDM - Recheck/Abnormal Lab/Rx Lab Data Result diagrams: 05/19/21 20:35 05/19/21 20:35 Labs: Lab Results 05/19/21 05/19/21 05/19/21 Range/Units 20:35 20:35 20:35 WBC 7.5 (4.5-11.0) X10^3/uL RBC 4.66 (4.5-5.9) X10^6/uL Hgb 14.7 (13.5-17.5) g/dL Hct 43.7 (41-53) % MCV 93.6 (80-100) fL MCH 31.6 (26-34) PG MCHC 33.7 (30-36) % RDW 13.1 (11.6-14.8) % Plt Count 472 H (150-400) X10^3/uL Neut % (Auto) 71.4 (50-75) % Lymph % (Auto) 20.9 L (25-40) % [place] % (Auto) 6.5 (3-14) % Eos % (Auto) 0.4 L (2-4) % Baso % (Auto) 0.8 (0-2) % Neut # (Auto) 5400 (2535-7714) /uL Lymph # (Auto) 1600 (9034-3009) /uL [place] # (Auto) 500 (0-900) /uL Eos # (Auto) 0 (0-450) /uL Baso # (Auto) 100 (0-100) /uL Sodium 138 (137-145) mmol/L Potassium 4.2 (3.4-5.1) mmol/L Chloride 100 (98-107) mmol/L Carbon Dioxide 32 (22-32) mmol/L BUN 12 (9-20) mg/dL Creatinine 0.60 L (0.66-1.25) mg/dL Estimated GFR > 60.0 (>60) mL/min BUN/Creatinine Ratio 20.0 (6-22) Glucose 107 H (70-100) mg/dL Lactate 0.7 (0.7-2.1) mmol/L Calcium 9.0 (8.4-10.2) mg/dL Total Bilirubin 0.5 (0.2-1.3) mg/dL AST 23 (17-59) IU/L ALT 16 (<50) IU/L Alkaline Phosphatase 47 (38-126) U/L Total Protein 6.9 (6.3-8.2) g/dL Albumin 4.0 (3.5-5.0) g/dL Globulin 2.9 (1.7-4.1) g/dL Albumin/Globulin Ratio 1.4 (1.0-2.8) Procalcitonin (<0.5) ng/mL 05/19/21 Range/Units 20:35 WBC (4.5-11.0) X10^3/uL RBC (4.5-5.9) X10^6/uL Hgb (13.5-17.5) g/dL Hct (41-53) % MCV (80-100) fL MCH (26-34) PG MCHC (30-36) % RDW (11.6-14.8) % Plt Count (150-400) X10^3/uL Neut % (Auto) (50-75) % Lymph % (Auto) (25-40) % [place] % (Auto) (3-14) % Eos % (Auto) (2-4) % Baso % (Auto) (0-2) % Neut # (Auto) (2848-5928) /uL Lymph # (Auto) (3469-9250) /uL [place] # (Auto) (0-900) /uL Eos # (Auto) (0-450) /uL Baso # (Auto) (0-100) /uL Sodium (137-145) mmol/L Potassium (3.4-5.1) mmol/L Chloride (98-107) mmol/L Carbon Dioxide (22-32) mmol/L BUN (9-20) mg/dL Creatinine (0.66-1.25) mg/dL Estimated GFR (>60) mL/min BUN/Creatinine Ratio (6-22) Glucose (70-100) mg/dL Lactate (0.7-2.1) mmol/L Calcium (8.4-10.2) mg/dL Total Bilirubin (0.2-1.3) mg/dL AST (17-59) IU/L ALT (<50) IU/L Alkaline Phosphatase (38-126) U/L Total Protein (6.3-8.2) g/dL Albumin (3.5-5.0) g/dL Globulin (1.7-4.1) g/dL Albumin/Globulin Ratio (1.0-2.8) Procalcitonin 0.05 (<0.5) ng/mL Imaging Data Abdominal x-ray: Radiologist's Impression: PROCEDURE: XR ACUTE ABDOMEN SERIES INDICATIONS: vomiting recent surgery constipation TECHNIQUE: One view chest and two views of the abdomen were acquired. COMPARISON: None. FINDINGS: Surgical changes and devices: None. Chest: Lungs are clear. Heart size is normal. No pleural effusions. No pneumoperitoneum. Abdomen: Dilated small bowel loops, mostly within the left abdomen measuring up to 3.7 cm. There are air-fluid levels. Bones: No suspicious bony lesions. IMPRESSION: Dilated small bowel loops, suspicious for small bowel obstruction, versus ileus. No specific transition point seen at this time although if the patient's symptoms do not improve, continued surveillance with abdominal series radiographs could be performed. Dictated by: Hernando Mcguire M.D. on 05/19/2021 at 21:14 CT scan - abdomen/pelvis: Radiologist's Impression: PROCEDURE: CT ABDOMEN PELVIS W CON INDICATIONS: SBO on xray TECHNIQUE: After the administration of intravenous contrast, axial sections acquired from the lung bases to the pubic symphysis. Coronal and sagittal reformats were performed. For radiation dose reduction, the following was used: automated exposure control, adjustment of mA and/or kV according to patient size. COMPARISON: [facility], CT, CT ABDOMEN PELVIS W CON, 05/07/2021, 16:06. FINDINGS: Lower thorax: The lung bases are clear. Heart size normal. No hiatal hernia. Liver: Normal in size and attenuation. No contour deformity present. Biliary system: No calcified cholelithiasis or pericholecystic inflammation. No intra or extrahepatic bile duct dilatation. Pancreas: Unremarkable without mass or inflammation evident. Spleen: Normal in size and density. Adrenals: Normal morphology and density. Reproductive system: Unremarkable as visualized. Urinary system: Normal renal size and attenuation. No renal calculi, hydronephr osis, or solid mass present. Urinary bladder unremarkable. Gastrointestinal system: There is fluid distension of the proximal small bowel measuring up to 3.3 cm in diameter, and persistent inflammatory change in the right lower quadrant. Additionally, moderate free fluid dependent in the pelvis and scattered pockets of fluid in the abdomen without mature encapsulation. Volume of fluid has increased from the prior Appendix: No findings to suggest acute appendicitis. Peritoneal spaces: No mesenteric or retroperitoneal adenopathy. No free air. No free fluid. Vasculature: The IVC, aorta and iliac vasculature are unremarkable. Musculoskeletal: Normal bone mineralization. No acute fractures. Abdominal wall intact without evidence of ventral or inguinal hernias. Midline skin sabina noted. Anterior abdominal wall intact. IMPRESSION: 1. Moderate free fluid dependent pelvis and multifocal pockets of fluid in the abdomen without mature enhancing encapsulation. Early abscess formation would be difficult to exclude. 2. Fluid distention of proximal small bowel probably reflects ileus. Approved by: Ceasar Clark M.D. on 05/19/2021 at 21:40 MDM Narrative Medical decision making narrative: Initial x-ray did show probable small-bowel obstruction. However patient is not distended he is having epigastric pain nausea. CT does not show obstruction he does have some pockets of free fluid possible ileus. Patient is feeling better after nausea and pain medication. He is instructed on oral rehydration techniques. [id number] Dr. Ortega, surgery has been obtained patient's symptoms test results states that probable gastroenteritis but patient get follow up in clinic Discharge Plan Departure Patient Disposition: Home Clinical Impression: Gastroenteritis, Ileus Instructions: DI for Ileus, DI for Viral Gastroenteritis -- Adult Activity Restrictions/Additional Instructions: *You have been diagnosed with gastroenteritis and ileus *What to do: At this time your nausea and vomiting is thought to be from something that he ate. This should start to improve. The pain you are ex periencing may be from slow bowels. *Continue to take medications as directed Zofran 4 mg every 8 hours if needed for nausea vomiting May try [id number] laxative medications such as MiraLax, Senokot, Metamucil, Dulcolax, magnesium citrate to help bowels start moving. Please just pick 1 of these medications do not take all of them or he will have excessive diarrhea *Follow up with your primary care provider in 2-3 days *Return to ER if you should have persistent nausea or vomiting, increased abdominal pain, fever or any new, worsening or concerning symptoms Prescriptions: New ondansetron 4 mg tablet,disintegrating 4 mg PO Q8H PRN (Reason: nausea and vomiting) Qty: 10 RF: 0 No Action ibuprofen 200 mg tablet 400 mg PO Q6H Qty: 60 RF: 0 oxycodone 5 mg tablet See Rx Instructions .ROUTE .COMPLEX PRN (Reason: pain) Qty: 30 RF: 0 acetaminophen [Tylenol] 325 mg capsule 650 mg PO QID PRN (Reason: pain) Qty: 60 RF: 0 levofloxacin 750 mg tablet 750 mg PO DAILY Qty: 7 RF: 0 metronidazole [Flagyl] 500 mg tablet 500 mg PO TID Qty: 21 RF: 0 Referrals: Pranav Ortega MD [Physician] -
--- NOTE | 2021-05-19 20:13 | DI.RAD.S_ITS ---
PROCEDURE: XR ACUTE ABDOMEN SERIES INDICATIONS: vomiting recent surgery constipation TECHNIQUE: One view chest and two views of the abdomen were acquired. COMPARISON: None. FINDINGS: Surgical changes and devices: None. Chest: Lungs are clear. Heart size is normal. No pleural effusions. No pneumoperitoneum. Abdomen: Dilated small bowel loops, mostly within the left abdomen measuring up to 3.7 cm. There are air-fluid levels. Bones: No suspicious bony lesions. IMPRESSION: Dilated small bowel loops, suspicious for small bowel obstruction, versus ileus. No specific transition point seen at this time although if the patient's symptoms do not improve, continued surveillance with abdominal series radiographs could be performed. Dictated by: Hernando Mcguire M.D. on 05/19/2021 at 21:14 Approved by: Hernando Mcguire M.D. on 05/19/2021 at 21:20
[2021-05-19] MEDS: PANTOPRAZOLE 40 MG VIAL IV (20:30)
[2021-05-19] MEDS: ONDANSETRON 4 MG/2 ML INJ IV (20:30)
[2021-05-19] MEDS: SODIUM CHLORIDE 0.9% 1,000 ML 1000 ML IV (20:30)
[2021-05-19 20:33] VITALS: BP 129/80; PULSE 64; O2SAT 98
[2021-05-19 20:48] LABS: Add Manual Diff / Slide Review NO; Basophils Absolute Auto 100 /uL (0-100); Basophils Percent Auto 0.8 % (0-2); Eosinophils Absolute Auto 0 /uL (0-450); Eosinophils Percent Auto 0.4 % (2-4); Hematocrit 43.7 % (41-53); Hemoglobin 14.7 g/dL (13.5-17.5); Lymphocytes Absolute Auto 1600 /uL (1100-4500); Lymphocytes Percent Auto 20.9 % (25-40); Mean Corpuscular HGB Conc 33.7 % (30-36); Mean Corpuscular Hemoglobin 31.6 PG (26-34); Mean Corpuscular Volume 93.6 fL (80-100); Monocytes Absolute Auto 500 /uL (0-900); Monocytes Percent Auto 6.5 % (3-14); Neutrophils Absolute Auto 5400 /uL (1500-7000); Neutrophils Percent Auto 71.4 % (50-75); Platelet Count 472 X10^3/uL (150-400); Red Blood Cell Count 4.66 X10^6/uL (4.5-5.9); Red Cell Distribution Width 13.1 % (11.6-14.8); White Blood Cell Count 7.5 X10^3/uL (4.5-11.0)
[2021-05-19 20:59] LABS: Alanine Aminotransferase 16 IU/L (<50); Albumin Globulin Ratio 1.4 (1.0-2.8); Alkaline Phosphatase 47 U/L (38-126); Aspartate Aminotransferase 23 IU/L (17-59); Bilirubin Total 0.5 mg/dL (0.2-1.3); Blood Urea Nitrogen 12 mg/dL (9-20); Carbon Dioxide 32 mmol/L (22-32); Chloride 100 mmol/L (98-107); Estimated Glomerular Filt Rate > 60.0 mL/min (>60); Globulin 2.9 g/dL (1.7-4.1); Glucose 107 mg/dL (70-100); HEMOLYSIS 17 (0-50); Lactate (Lactic Acid) 0.7 mmol/L (0.7-2.1); Potassium 4.2 mmol/L (3.4-5.1); Sodium 138 mmol/L (137-145); Total Protein 6.9 g/dL (6.3-8.2)
[2021-05-19 21:00] VITALS: BP 114/69; PULSE 59; O2SAT 98
[2021-05-19 21:15] LABS: Procalcitonin 0.05 ng/mL (<0.5)
--- NOTE | 2021-05-19 21:29 | DI.CT.S_ITS ---
PROCEDURE: CT ABDOMEN PELVIS W CON INDICATIONS: SBO on xray TECHNIQUE: After the administration of intravenous contrast, axial sections acquired from the lung bases to the pubic symphysis. Coronal and sagittal reformats were performed. For radiation dose reduction, the following was used: automated exposure control, adjustment of mA and/or kV according to patient size. COMPARISON: [facility], CT, CT ABDOMEN PELVIS W CON, 05/07/2021, 16:06. FINDINGS: Lower thorax: The lung bases are clear. Heart size normal. No hiatal hernia. Liver: Normal in size and attenuation. No contour deformity present. Biliary system: No calcified cholelithiasis or pericholecystic inflammation. No intra or extrahepatic bile duct dilatation. Pancreas: Unremarkable without mass or inflammation evident. Spleen: Normal in size and density. Adrenals: Normal morphology and density. Reproductive system: Unremarkable as visualized. Urinary system: Normal renal size and attenuation. No renal calculi, hydronephrosis, or solid mass present. Urinary bladder unremarkable. Gastrointestinal system: There is fluid distension of the proximal small bowel measuring up to 3.3 cm in diameter, and persistent inflammatory change in the right lower quadrant. Additionally, moderate free fluid dependent in the pelvis and scattered pockets of fluid in the abdomen without mature encapsulation. Volume of fluid has increased from the prior Appendix: No findings to suggest acute appendicitis. Peritoneal spaces: No mesenteric or retroperitoneal adenopathy. No free air. No free fluid. Vasculature: The IVC, aorta and iliac vasculature are unremarkable. Musculoskeletal: Normal bone mineralization. No acute fractures. Abdominal wall intact without evidence of ventral or inguinal hernias. Midline skin sabina noted. Anterior abdominal wall intact. IMPRESSION: 1. Moderate free fluid dependent pelvis and multifocal pockets of fluid in the abdomen without mature enhancing encapsulation. Early abscess formation would be difficult to exclude. 2. Fluid distention of proximal small bowel probably reflects ileus. Approved by: Ceasar Clark M.D. on 05/19/2021 at 21:40
[2021-05-19] MEDS: MORPHINE 4 MG/ML INJ IV (23:36)
[2021-05-20] MEDS: ONDANSETRON 4 MG ODT PREPACK 1 BOTTLE MISC (00:07)
[2021-05-20 00:11] VITALS: BP 135/84; PULSE 73; RESP 18; TEMP 37.4; O2SAT 96
== END 2021-05-20 00:14 | disposition home or self-care (01) ==
PROVIDERS: Emergency Provider Emergency Medicine
DX: K52.9 Noninfective gastroenteritis and colitis, unspecified (principal); K56.7 Ileus, unspecified; R10.13 Epigastric pain
CPT/HCPCS: 74022; 74177; 80053; 83605; 84145; 85025; 96361; 96374; 96375; 99283; 99284; C9113; J2270; J2405; Q9967